=== PATIENT | male | born 1950 | race Caucasian/White ===

== ENCOUNTER 2018-04-06 09:00 | Outpatient (CLI) | payer MEDICARE, OTHER ==
[2018-04-27] MEDS ORDERED: PIOG45TA7 PO (09:29)
[2018-04-27] MEDS ORDERED: ASPI-999 PO (09:29)
[2018-04-27] MEDS ORDERED: FURO80TA3 PO (09:29)
[2018-04-27] MEDS ORDERED: SIMV20TA3 PO (09:29)
[2018-04-27] MEDS ORDERED: METF10002 PO (09:29)
[2018-04-27] MEDS ORDERED: RANI150T90 PO (09:29)
[2018-04-27] MEDS ORDERED: LOSA100T28 PO (09:29)
[2018-04-27] MEDS ORDERED: POTA10CA43 PO (09:29)
[2018-04-27] MEDS ORDERED: TAMS0.4C98 PO (09:29)
[2018-04-28] MEDS ORDERED: LOSA100T28 PO (10:26)
== END 2018-04-06 09:38 | disposition home or self-care (01) ==
LOC: SLEEP 09:00
PROVIDERS: ATTEND Nurse Practitioner Family
DX: G47.33 Obstructive sleep apnea (adult) (pediatric) (principal)

== ENCOUNTER → 2018-04-13 | Outpatient (CLI) | payer MEDICARE, OTHER ==
[~2018-04-13] VITALS: Ht 177.8 cm; Wt 118.8 kg
[~2018-04-13] MED LIST: ASPI-999 PO; CATHETER FLUSH 10 ML SYR IV PRN; FURO80TA3 PO; LOSA100T28 PO; METF10002 PO; PIOG45TA7 PO; POTA10CA43 PO; RANI150T90 PO; REGADENOSON 0.4 MG/5 ML SYR (LEXISCAN) IV ONE; SIMV20TA3 PO; TAMS0.4C98 PO
[2018-04-13 09:04] VITALS: BP 156/90
[2018-04-13 09:08] VITALS: BP 152/86
--- NOTE | 2018-04-16 11:40 | STRESS TEST ---
DATE OF SERVICE: 04/13/2018 PROCEDURE PERFORMED: Resting and post-regadenoson technetium-99m tetrofosmin SPECT CT imaging. ORDERING PHYSICIAN: Ermelinda Carbajal MD, PEYTON, FACP, FACC. PRIMARY PHYSICIAN: No primary physician. CLINICAL DIAGNOSES: Shortness of breath, chest discomfort. Baseline images were carried out after injection of 10.7 mCi of technetium-99m tetrofosmin. This was followed by 0.4 mg regadenoson and 29.4 mCi of technetium-99m tetrofosmin for stress imaging. The electrocardiogram showed sinus rhythm at baseline that did not change significantly with the regadenoson infusion. The patient tolerated the procedure well. Review of images at rest and following regadenoson infusion indicates a small basal inferior perfusion defect that appears transient. Gated images show normal global left ventricular systolic function without distinct regional wall motion abnormality. Left ventricular ejection fraction is calculated to be 74%. Left ventricular end diastolic volume is 72 mL. TID is absent (0.98). CONCLUSIONS: 1. This study is suggestive of a small amount of basal inferior ischemia. 2. Normal regional wall motion. 3. Normal global systolic function with a calculated ejection fraction of 74%. Job ID: [id number] DocumentID: [id number] Dictated Date: 04/16/2018 07:18:30 Manager Media Relations Date: 04/16/2018 11:39:24 Dictated By: ERMELINDA CARBAJAL MD, PEYTON, FACP, FACC,
== END ==
LOC: CARD 07:37
PROVIDERS: ATTEND Internal Medicine Cardiovascular Disease
DX: I10 Essential (primary) hypertension (principal); R06.02 Shortness of breath; R07.89 Other chest pain; E11.9 Type 2 diabetes mellitus without complications; E66.8 Other obesity
CPT/HCPCS: 78452; 93017

== ENCOUNTER → 2018-05-10 | Outpatient (CLI) | payer MEDICARE, OTHER ==
[~2018-05-10] MED LIST changes: -CATHETER FLUSH 10 ML SYR IV PRN; -REGADENOSON 0.4 MG/5 ML SYR (LEXISCAN) IV ONE
== END ==
LOC: CARD 12:05
PROVIDERS: ATTEND Internal Medicine Cardiovascular Disease
DX: R06.02 Shortness of breath (principal); R07.89 Other chest pain; E11.9 Type 2 diabetes mellitus without complications; I10 Essential (primary) hypertension; E66.9 Obesity, unspecified
CPT/HCPCS: 93306

== ENCOUNTER 2018-05-13 13:15 | Emergency (ER) | payer MEDICARE, OTHER ==
[~2018-05-13] VITALS: Ht 179.1 cm; Wt 104.3 kg
--- NOTE | 2018-05-13 13:55 | ED Lower Extremity ---
General Chief Complaint: Lower Extremity Stated Complaint: POST OP CATH RIGHT LEG SWELLING Nursing Triage Note: PT STATES HE HAD A HEART CATH DONE ON 04/30/18, CC OF PAIN AND SWELLING IN RT LEG ALL THE WAY DOWN TO HIS ANKLE. Nursing Sepsis Screen: No Definite Risk Source: patient Exam Limitations: no limitations History of Present Illness Date Seen by Provider: May 13, 2018 Time Seen by Provider: 13:53 Initial Comments to ER with reports of swelling to the right leg. He noticed the swelling only about 3-4 days ago. The right leg has become very painful. He had a cardiac catheterization done with the right femoral artery as the access site on .he has only a small golf ball-sized bump in the groin which is stable and unchanged. He has some bruising about the leg down around the knee but states this is actually improving as well. The swelling is a new finding as is the pain and a bit of redness over the marin for the past few days. No fevers or chills. Onset: just prior to arrival Severity: moderate Pain/Injury Location: right leg Allergies and Home Medications Allergies Coded Allergies: No Known Drug Allergies (Unverified , 04/13/18) Home Medications Aspirin 81 Mg Tab.chew, 81 MG PO DAILY, (Reported) Losartan Potassium 100 Mg Tablet, 50 MG PO DAILY Prescribed by: CASA PARIKH on 04/28/18 1026 Metformin HCl 1,000 Mg Tablet, 1,000 MG PO BID, (Reported) Pioglitazone HCl 45 Mg Tablet, 45 MG PO DAILY, (Reported) Ranitidine HCl 150 Mg Tablet, 150 MG PO BID, (Reported) Simvastatin 20 Mg Tablet, 20 MG PO HS, (Reported) Tamsulosin HCl 0.4 Mg Cap, 0.4 MG PO DAILY, (Reported) Patient Home Medication List Home Medication List Reviewed: Yes Constitutional: see HPI EENTM: see HPI Respiratory: no symptoms reported Cardiovascular: no symptoms reported Genitourinary: no symptoms reported Musculoskeletal: see HPI Skin: no symptoms reported Psychiatric/Neurological: No Symptoms Reported Past Lfjaria-Qhcdek-Zdphkq Hx Patient Social History Alcohol Use: Denies Use Recreational Drug Use: No Smoking Status: Former Smoker Type Used: Cigarettes Former Smoker, Quit: Apr 27, 2003 Recent Foreign Travel: No Contact w/Someone Who Travel: No Recent Infectious Disease Expo: No Recent Hopitalizations: Yes (APRIL 30, 2018 HEART CATH) Seasonal Allergies Seasonal Allergies: No Past Medical History Surgeries: Yes Cardiac Respiratory: No Cardiac: Yes Coronary Artery Disease Neurological: No Genitourinary: No Gastrointestinal: No Musculoskeletal: No Endocrine: Yes Diabetes, Non-Insulin dep HEENT: No Cancer: No Psychosocial: No Integumentary: No Physical Exam Vital Signs Capillary Refill : Less Than 3 Seconds General Appearance: WD/WN, no apparent distress HEENT: PERRL/EOMI, normal ENT inspection Neck: non-tender, full range of motion Respiratory: no respiratory distress, no accessory muscle use Hips: bilateral hip non-tender, bilateral hip normal inspection, bilateral hip normal range of motion Legs: right leg pain, right leg soft tissue tenderness, right leg swelling, right leg other (purplish ecchymosis around the distal thigh and proximal tibia/ fibula. There is swelling to the lower extremity 2+ pitting edema asymmetrical as there is no edema on the left. Distal pulses remain intact,both lower extremities are warm to the touch with brisk capillary refill. Does have a palpable golf ball-sized nodule to the right groin without palpable thrill. There is some erythema over the anterior aspect of the lower leg) Knees: bilateral knee non-tender, bilateral knee normal inspection, bilateral knee normal range of motion Ankles: bilateral ankle non-tender, bilateral ankle normal inspection, bilateral ankle normal range of motion Feet: bilateral foot non-tender, bilateral foot normal inspection, bilateral foot normal range of motion Neurologic/Psychiatric: alert, normal mood/affect, oriented x 3 Skin: normal color, warm/dry, ecchymosis Progress/Results/Core Measures Results/Orders Lab Results Laboratory Tests Test 05/13/18 15:00 Range/Units White Blood Count 7.0 4.3-11.0 10^3/uL Red Blood Count 3.85 L 4.35-5.85 10^6/uL Hemoglobin 11.9 L 13.3-17.7 G/DL Hematocrit 36 L 40-54 % Mean Corpuscular Volume 94 80-99 FL Mean Corpuscular Hemoglobin 31 25-34 PG Mean Corpuscular Hemoglobin Concent 33 32-36 G/DL Red Cell Distribution Width 14.7 H 10.0-14.5 % Platelet Count 306 130-400 10^3/uL Mean Platelet Volume 10.5 H 7.4-10.4 FL Neutrophils (%) (Auto) 64 42-75 % Lymphocytes (%) (Auto) 23 12-44 % Monocytes (%) (Auto) 9 0-12 % Eosinophils (%) (Auto) 5 0-10 % Basophils (%) (Auto) 0 0-10 % Neutrophils # (Auto) 4.5 1.8-7.8 X 10^3 Lymphocytes # (Auto) 1.6 1.0-4.0 X 10^3 Monocytes # (Auto) 0.6 0.0-1.0 X 10^3 Eosinophils # (Auto) 0.4 H 0.0-0.3 10^3/uL Basophils # (Auto) 0.0 0.0-0.1 10^3/uL Prothrombin Time 13.2 12.2-14.7 SEC INR Comment 1.0 0.8-1.4 Activated Partial Thromboplast Time 32 24-35 SEC My Orders Orders - ELVIN ROCHA APRN Us Right Low Ext [id number] (05/13/18 13:52) Cbc With Automated Diff (05/13/18 13:52) Partial Thromboplastin Time (05/13/18 13:52) Protime With Inr (05/13/18 13:52) Us Venous Lower Ext Rt (05/13/18 14:25) Vital Signs/I&O Blood Pressure Mean: 112 Diagnostic Imaging Diagonstic Imaging: Ultrasound Comments NAME: SPENSER GALAVIZ [facility] REC#: [id number] PT STATUS: REG ER : 1950 PHYSICIAN: ELVIN ROCHA APRN ADMIT DATE: 05/13/18/ER Draft Date of Exam:05/13/18 US VENOUS LOWER EXT RT PROCEDURE: US right lower extremity venous. TECHNIQUE: Multiple real-time grayscale images were obtained over the right lower extremity in various projections. Additional duplex Doppler and color Doppler images were also obtained. INDICATION: Recent heart catheterization and leg swelling. FINDINGS: There is no evidence of a right lower extremity DVT. The right lower extremity deep venous system shows normal compressibility with normal response to augmentation and Valsalva. No fluid collection or mass is seen. IMPRESSION: No evidence of right lower extremity DVT. Dictated on workstation # [id number] Dict: 05/13/18 1509 Trans: 05/13/18 1510 [id number] Interpreted by: SOFI STEINBERG MD Electronically signed by: NAME: SPENSER GALAVIZ [facility] REC#: [id number] PT STATUS: REG ER : 1950 PHYSICIAN: ELVIN ROCHA APRN ADMIT DATE: 05/13/18/ER Draft Date of Exam:05/13/18 US RIGHT LOW EXT [id number] Indication: Status post heart catheterization on 04/27/2018 with a lump in the right groin. Sonographic interrogation of the right groin was performed. There appears to be a pseudoaneurysm arising from the common femoral artery measuring 3.2 x 2.3 x 3.0 cm. Internal to-and-fro flow is present. No other abnormality is seen. No definite AV fistula is identified. Impression: Right groin pseudoaneurysm. Dictated on workstation # [id number] Dict: 05/13/18 1510 Trans: 05/13/18 1511 [id number] [id number] Interpreted by: SOFI STEINBERG MD Electronically signed by: Departure Communication (Admissions) 1517- I spoke with Dr. Frank who advises to check with our radiologist to see if he does thrombin injections into these. Otherwise patient may need transfer to [place]. Spoke with Dr. Steinberg from radiology who does not do thrombin injections. 1543- Dr Ventura from [facility] has accepted the patient in transfer as a direct admission. I'll transfer via private vehicle as the patient is very stable. His plan is to repeat the ultrasound tomorrow morning and inject with thrombin. If this fails to resolve the pseudoaneurysm he'll fix this under in an open fashion Impression Primary Impression: Pseudoaneurysm of right femoral artery Disposition: XFER SHT-TRM HOSP Condition: Stable Departure-Patient Inst. Decision time for Depature: 15:45 Referrals: NO,LOCAL PHYSICIAN (PCP/Family) Primary Care Physician Add. Discharge Instructions: 1. You're to go directly to [facility] were you're admitted under the care of Dr. Ventura who will fix this tomorrow morning. ELVIN ROCHA APRN May 13, 2018 13:55
--- NOTE | 2018-05-13 15:11 | Diagnostic Imaging Report ---
PROCEDURE: US right lower extremity venous. TECHNIQUE: Multiple real-time grayscale images were obtained over the right lower extremity in various projections. Additional duplex Doppler and color Doppler images were also obtained. INDICATION: Recent heart catheterization and leg swelling. FINDINGS: There is no evidence of a right lower extremity DVT. The right lower extremity deep venous system shows normal compressibility with normal response to augmentation and Valsalva. No fluid collection or mass is seen. IMPRESSION: No evidence of right lower extremity DVT. Dictated by: Dictated on workstation # [id number]
[2018-05-13 15:12] LABS: BASOPHILS % (AUTO) 0 % (0-10); EOSINOPHILS # (AUTO) 0.4 10^3/uL (0.0-0.3); EOSINOPHILS % (AUTO) 5 % (0-10); HEMATOCRIT 36 % (40-54); HEMOGLOBIN 11.9 G/DL (13.3-17.7); LYMPHOCYTES # (AUTO) 1.6 X 10^3 (1.0-4.0); LYMPHOCYTES % (AUTO) 23 % (12-44); MEAN CORPUSCULAR HEMOGLOBIN 31 PG (25-34); MEAN CORPUSCULAR HGB CONC 33 G/DL (32-36); MEAN CORPUSCULAR VOLUME 94 FL (80-99); MEAN PLATELET VOLUME 10.5 FL (7.4-10.4); MONOCYTES # (AUTO) 0.6 X 10^3 (0.0-1.0); MONOCYTES % (AUTO) 9 % (0-12); NEUTROPHILS # (AUTO) 4.5 X 10^3 (1.8-7.8); NEUTROPHILS % (AUTO) 64 % (42-75); PLATELET COUNT 306 10^3/uL (130-400); RED BLOOD COUNT 3.85 10^6/uL (4.35-5.85); RED CELL DISTRIBUTION WIDTH 14.7 % (10.0-14.5)
--- NOTE | 2018-05-13 15:12 | Diagnostic Imaging Report ---
Indication: Status post heart catheterization on 04/27/2018 with a lump in the right groin. Sonographic interrogation of the right groin was performed. There appears to be a pseudoaneurysm arising from the common femoral artery measuring 3.2 x 2.3 x 3.0 cm. Internal to-and-fro flow is present. No other abnormality is seen. No definite AV fistula is identified. Impression: Right groin pseudoaneurysm. Dictated by: Dictated on workstation # [id number]
[2018-05-13 15:27] LABS: PROTHROMBIN TIME PATIENT 13.2 SEC (12.2-14.7)
[2018-05-13 17:08] VITALS: BP 159/82
== END 2018-05-13 17:08 | disposition home or self-care (01) ==
LOC: EDUNIT# 13:15 → ER 13:17
DX: I72.4 Aneurysm of artery of lower extremity (principal); I25.10 Atherosclerotic heart disease of native coronary artery without angina pectoris; E11.9 Type 2 diabetes mellitus without complications; Z87.891 Personal history of nicotine dependence; Z79.82 Long term (current) use of aspirin; Z79.84 Long term (current) use of oral hypoglycemic drugs; Z98.890 Other specified postprocedural states
CPT/HCPCS: 36415; 85025; 85610; 85730; 93926